=== PATIENT | female | born 2000 | race Two or more races ===

== ENCOUNTER 2025-02-12 22:23 | Emergency (ER) | payer OTHER ==
[~2025-02-12] VITALS: Ht 172.7 cm; Wt 63.5 kg
[2025-02-12] MEDS ORDERED: TETANUS & DIPHTHERIA TOX,ADULT 0.5 ML VIAL IM ONE (23:15)
[2025-02-12] MEDS ORDERED: CEFTRIAXONE SODIUM 1,000 MG VIAL IM ONE (23:15)
[2025-02-12] MEDS ORDERED: KETOROLAC TROMETHAMINE 60 MG VIAL IM ONE (23:15)
[2025-02-12] MEDS ORDERED: LIDOCAINE HCL 1% 10ML VIAL PERCUT ONE (23:30)
[2025-02-13] MEDS ORDERED: CEFTRIAXONE SODIUM 1,000 MG VIAL ONE
[2025-02-13] MEDS ORDERED: DIPHTH,PERTUSS(ACELL),TET VAC 0.5 ML SYRINGE IM ONE (00:01)
[2025-02-13] MEDS ORDERED: KETOROLAC TROMETHAMINE 60 MG VIAL IM ONE (00:04)
[2025-02-13] MEDS ORDERED: CEFUROXIME500 MG PO (00:05)
[2025-02-13] MEDS ORDERED: PEPCID AC20 MG PO (00:05)
== END 2025-02-13 00:17 | disposition home or self-care (01) ==
LOC: ER 22:23
DX: S61.214A Laceration without foreign body of right ring finger without damage to nail, initial encounter (principal); W31.89XA Contact with other specified machinery, initial encounter; Y93.89 Activity, other specified; Y92.89 Other specified places as the place of occurrence of the external cause; Y99.9 Unspecified external cause status

== ENCOUNTER 2025-04-20 20:04 | Emergency (ER) | payer OTHER ==
[~2025-04-20] VITALS: Ht 172.7 cm; Wt 59.0 kg
[~2025-04-20 20:04] MED LIST: CEFUROXIME500 MG PO; PEPCID AC20 MG PO
[2025-04-20 20:29] VITALS: BP 127/76; O2SAT 97
[2025-04-20] MEDS ORDERED: DIPHENHYDRAMINE HCL 50 MG/ML VIAL 1ML IM STA (21:21)
[2025-04-20] MEDS ORDERED: DIPHENHYDRAMINE HCL 50 MG/ML VIAL 1ML ONE (22:07)
[2025-04-20 23:13] LABS: URINE APPEARANCE Turbid; URINE BILIRRUBIN Negative (NEGATIVE); URINE BLOOD Negative; URINE COLOR Yellow; URINE GLUCOSE Negative (NEGATIVE); URINE KETONE Trace (NEGATIVE); URINE LEUKOCYTE Small; URINE NITRATE Negative; URINE PROTEIN Trace (NEGATIVE); URINE UROBILINOGEN 0.2 E.U./dl
[2025-04-20 23:17] LABS: URINE BACTERIA 1670.3 uL (0.0-1933); URINE EPITHELIAL CELLS 70.4 uL (0.0-38.8); URINE RBC 4.3 uL (0.0-20.8); URINE WBC 20.1 uL (0.0-23.2)
[2025-04-20 23:22] LABS: BASO % 0.3 % (0.1-1.2); EOS # 0.16 (0.04-0.54); EOS % 1.4 % (0.7-7.0); LYMPH # 1.82 (1.18-3.74); LYMPH % 16.2 % (19.3-53.1); MEAN PLATELET VOLUME 11.50 fl (9.4-12.4); MONO # 0.83 (0.24-0.82); MONO % 7.4 % (4.7-12.5); NEUT # 8.35 (1.56-6.13); NEUT % 74.3 % (34.0-71.1); RED CELL DISTRIBUTION WIDTH 11.5 % (11.6-14.4)
[2025-04-20 23:28] LABS: ALT/SGPT 27 U/L (12-78); AST/SGOT 157 U/L (15-37); BILIRUBIN TOTAL 0.39 mg/dL (0.3-1.2); BUN CREA RATIO 18 (7.0-25.0); CREATININE SERUM 0.77 mg/dL (0.55-1.02); GFR 93.74; GLOBULINA 3.4 G/DL (2.4-3.5); GLUCOSE FASTING 92 mg/dL (65-100); OSMOLALITY SERUM 287 MOSM/KG (275-295)
[2025-04-20 23:48] LABS: COVID-19 AG NEGATIVE (NEGATIVE)
[2025-04-21 00:05] LABS: TYPE CELLS SQUAMOUS; URINE CAST 0.43 uL (0.0-1.40); URINE CRYSTALS MODERATE /HPF
[2025-04-21] MEDS ORDERED: 0.9 % SODIUM CHLORIDE 1,000 ML IV STA (00:21)
[2025-04-21] MEDS ORDERED: CEFTRIAXONE SODIUM 1,000 MG VIAL IV STA (00:21)
[2025-04-21] MEDS ORDERED: KETOROLAC TROMETHAMINE 30 MG VIAL IU STA (00:22)
[2025-04-21] MEDS ORDERED: LEVOFLOXACIN750 MG PO (00:30)
[2025-04-21] MEDS ORDERED: CEFTRIAXONE SODIUM 1,000 MG VIAL ONE (00:50)
[2025-04-21] MEDS ORDERED: KETOROLAC TROMETHAMINE 30 MG VIAL ONE (00:51)
== END 2025-04-21 02:29 | disposition home or self-care (01) ==
LOC: ER 20:04
PROVIDERS: Physician Assistant Medical
DX: J03.80 Acute tonsillitis due to other specified organisms (principal); B96.89 Other specified bacterial agents as the cause of diseases classified elsewhere; N39.0 Urinary tract infection, site not specified; Z20.822 Contact with and (suspected) exposure to COVID-19